=== PATIENT | male | born 1930 | race Two or more races ===

== ENCOUNTER 2017-05-06 13:17 | Emergency (ER) | payer BC, OTHER | END 2017-05-06 14:08 | disposition home or self-care (01) | LOC: ER 13:17 | DX: L03.113 Cellulitis of right upper limb (principal); I10 Essential (primary) hypertension; K21.9 Gastro-esophageal reflux disease without esophagitis; E11.9 Type 2 diabetes mellitus without complications | CPT/HCPCS: 99283 ==